=== PATIENT | female | born 1960 | race African-American/Black ===

== ENCOUNTER 2016-06-09 10:23 | Emergency (ER) | payer BC ==
[2016-06-09 10:29] VITALS: BP 163/88; PULSE 73; TEMP 97.4; BMI 28.3
--- NOTE | 2016-06-09 11:45 | PDOC ---
History of Present Illness - General Chief Complaint: Pain Stated Complaint: SWOLLEN LT INDEX Time Seen by Provider: 06/09/16 11:29 History Source: Patient Exam Limitations: No Limitations - History of Present Illness Initial Comments: 06/09/16 11:35 55 yr female with right index finger paronychia for one week. Pt denies trauma states she visits the nail salon often. Pt denies fever or chills. Pt has history of DM. Severity: reports: mild Upper Extremity Pain Location: right: 2nd finger Past History - Past Medical History Allergies/Adverse Reactions: Allergies Allergy/AdvReac Type Severity Reaction Status Date / Time No Known Allergies Allergy Verified 06/09/16 10:29 Home Medications: Ambulatory Orders Glimepiride [Amaryl] 4 mg PO BID 06/09/16 Losartan Potassium 50 mg PO DAILY 06/09/16 Sulfamethoxazole/Trimethoprim [Bactrim Ds Tablet] 1 each PO BID #10 tablet 06/09 Diabetes: Yes - Surgical History Abdominal Surgery: (TUBAL LIGATION) - Family Disease History Comment:: 06/09/16 11:37 denies - Psycho/Social/Smoking Cessation Hx Suicidal Ideation: No Smoking Status: No Smoking History: Never smoked Number of Cigarettes Smoked Daily: 0 Hx Alcohol Use: No Drug/Substance Use Hx: No Review of Systems - Review of Systems Able to Perform ROS?: Yes Is the patient limited Bhutanese proficient: No Constitutional: No: Symptoms Reported HEENTM: No: Symptoms Reported Respiratory: No: Symptoms reported Cardiac (ROS): No: Symptoms Reported ABD/GI: No: Symptoms Reported Musculoskeletal: No: Symptoms Reported Integumentary: Yes: Symptoms Reported *Physical Exam - Vital Signs Last Vital Signs Temp Pulse Resp BP Pulse Ox 97.4 F L 73 18 163/88 98 06/09/16 10:26 06/09/16 10:26 06/09/16 10:26 06/09/16 10:26 06/09/16 10:26 - Physical Exam General Appearance: Yes: Nourished, Appropriately Dressed HEENT: positive: EOMI, KRYSTINA, Normal ENT Inspection, TMs Normal, Pharynx Normal Neck: positive: Supple Respiratory/Chest: positive: Lungs Clear, Normal Breath Sounds Cardiovascular: positive: Regular Rhythm, Regular Rate Gastrointestinal/Abdominal: positive: Normal Bowel Sounds, Soft Musculoskeletal: positive: Normal Inspection Extremity: positive: Normal Capillary Refill, Normal Range of Motion, Swelling ( paronychia right index finger ) Integumentary: positive: Normal Color, Dry, Warm Neurologic: positive: Fully Oriented, Alert, Normal Mood/Affect, Normal Response , Motor Strength 5/5 Procedures - Incision and Drainage I&D Site: Right: Paronychia (index finger) Betadine cleansed: Yes Blade Size: 10 Attempts: 1 Dressing: Yes (soaked in warm soapy water after draining , bacitracin and bandaid ) Medical Decision Making - Medical Decision Making 06/09/16 11:40 cc: right index finger with paronychia no streaking redness up the finger nv intact will drain the paronychia and redress pt tolerated well 06/09/16 11:45 06/09/16 11:46 *DC/Admit/Observation/Transfer Diagnosis at time of Disposition: Paronychia of finger Qualifiers: Laterality: right Qualified Code(s): L03.011 - Cellulitis of right finger - Discharge Dispostion Disposition: HOME Condition at time of disposition: Good - Prescriptions Prescriptions: Sulfamethoxazole/Trimethoprim [Bactrim Ds Tablet] 1 each PO BID #10 tablet - Referrals Referrals: Wendy Eric MD [Primary Care Provider] - Edmund Chong MD [Staff Physician] - - Patient Instructions Additional Instructions: soak the finger in warm soapy water 3 times a day apply bacitracin and bandaid take the antibiotics as prescribed follow with the plastic surgeon for follow up if symptoms persist or worsen no nail salon until symptoms have improved
== END 2016-06-09 12:27 | disposition home or self-care (01) ==
LOC: JER 10:23 → JERFT 10:23
PROC: 0H9QXZZ Drainage of Finger Nail, External Approach (ICD-10-PCS; principal; 2016-06-09)
DX: L03.011 Cellulitis of right finger (principal)
CPT/HCPCS: 99281-25

== ENCOUNTER 2016-09-21 12:16 | Emergency (ER) | payer BC ==
[2016-09-21 12:20] VITALS: BP 130/83; PULSE 81; TEMP 98; BMI 26.5
[2016-09-21 12:39] LABS: URINE APPEARANCE CLEAR; URINE BILIRUBIN NEGATIVE (NEGATIVE); URINE BLOOD NEGATIVE (NEGATIVE); URINE COLOR LTYELLOW; URINE GLUCOSE (UA) 2+ (NEGATIVE); URINE KETONE NEGATIVE (NEGATIVE); URINE NITRITE NEGATIVE (NEGATIVE); URINE PROTEIN NEGATIVE (NEGATIVE); URINE UROBILINOGEN NEGATIVE E.U./dl (0.2-1.0)
[2016-09-21 12:40] LABS: URINE LEUK ESTERASE 1+ (NEGATIVE)
[2016-09-21] MEDS ORDERED: PHENAZOPYRIDINE HCL 100 MG TABLET (FP) PO ONE (12:52)
--- NOTE | 2016-09-21 12:56 | PDOC ---
History of Present Illness - General Chief Complaint: Urinary Problem Stated Complaint: LOWER PELVIC PAIN Time Seen by Provider: 09/21/16 12:40 - History of Present Illness Initial Comments: 09/21/16 12:53 CHIEF COMPLAINT: urinary pain HISTORY OF PRESENT ILLNESS: 55 yo F presents to [facility] with pain with urination. Patient states she feels burning or "knives" when she urinates. She denies any vaginal pain or back pain. She reports that she has not been sexually active for the past 10 years. Patient reports feeling "like chafing" to her vagina when urinating. PAST MEDICAL HISTORY: Denies past medical history FAMILY HISTORY: Denies SOCIAL HISTORY: Denies tobacco, alcohol, illicit drug use. SURGICAL HISTORY: hysterectomy ALLERGIES: No known drug allergies REVIEW OF SYSTEMS General/Constitutional: Denies fever or chills. Denies weakness, weight change. HEENT: Denies change in vision. Denies ear pain or discharge. Denies sore throat. Cardiovascular: Denies chest pain or shortness of breath. Respiratory: Denies cough, wheezing, or hemoptysis. Gastrointestinal: Denies nausea, vomiting, diarrhea or constipation. Denies rectal bleeding. Genitourinary: Dysuria and urinary frequency. Musculoskeletal: Denies joint or muscle swelling or pain. Denies neck or back pain. Skin and breasts: Denies rash or easy bruising. PHYSICAL EXAM General Appearance: Well-appearing, appropriately dressed. No apparent distress. HEENT: EOMI, PERRLA. Respiratory/Chest: Lungs CTAB. Cardiovascular: RRR. S1, S2. Gastrointestinal/Abdominal: Normal bowel sounds. Abdomen soft, non-distended. No tenderness or rebound tenderness. No organomegaly, pulsatile mass, guarding , hernia, hepatomegaly, splenomegaly. Musculoskeletal/Extremities: Normal inspection. FROM of all extremities, normal capillary refill. Pelvis Stable. No CVA tenderness. No tenderness to extremities, pedal edema, swelling, erythema or deformity. Pelvic: External genitalia normal without lesions, minimal cottage cheese like discharge to outer labia. Vaginal vault is clear without blood or discharge. Cervix is long and closed. No cervical motion tenderness. Uterus is nontender and normal in size. Adnexa are nontender and without masses. Integumentary: Appropriate color, dry, warm. 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 Fully oriented, alert. Appropriate mood/affect. Motor strength 5/5. No appreciable EOM palsy, facial droop or sensory deficit. 09/21/16 15:01 Past History - Past Medical History Allergies/Adverse Reactions: Allergies Allergy/AdvReac Type Severity Reaction Status Date / Time No Known Allergies Allergy Verified 09/21/16 12:18 Home Medications: Ambulatory Orders Glimepiride [Amaryl] 4 mg PO BID 06/09/16 Losartan Potassium 50 mg PO DAILY 06/09/16 Sulfamethoxazole/Trimethoprim [Bactrim Ds Tablet] 1 each PO BID #10 tablet 06/09 Cephalexin [Keflex] 500 mg PO BID #20 capsule 09/21/16 Diabetes: Yes (NIDDM) - Surgical History Abdominal Surgery: (TUBAL LIGATION) - Psycho/Social/Smoking Cessation Hx Anxiety: No Suicidal Ideation: No Smoking Status: No Smoking History: Never smoked Have you smoked in the past 12 months: No Number of Cigarettes Smoked Daily: 0 Information on smoking cessation initiated: No Hx Alcohol Use: No Drug/Substance Use Hx: No Substance Use Type: None *Physical Exam - Vital Signs Last Vital Signs Temp Pulse Resp BP Pulse Ox 98.0 F 81 16 130/83 100 09/21/16 12:18 09/21/16 12:18 09/21/16 12:18 09/21/16 12:18 09/21/16 12:18 ED Treatment Course - ADDITIONAL ORDERS Additional order review: Laboratory Results 09/21/16 12:20 Urine Color Ltyellow Urine Appearance Clear Urine pH 9.0 H D Urine Protein Negative Urine Glucose (UA) 2+ H Urine Ketones Negative Urine Blood Negative Urine Nitrite Negative Urine Bilirubin Negative Urine Urobilinogen Negative Ur Leukocyte Esterase 1+ H Medical Decision Making - Medical Decision Making 09/21/16 15:02 55 yo F presents to [facility] with pain with urination. -UA, UCx UA: 1+ leuks, WBC 1 - unlikely UTI but will treat symptomatically. Patient likely with yeast infection due to irritation and discharge visualized to external genitalia. -150 mg fluconazole Keflex sent to pharm. Advised patient to take medication as prescribed. Advised patient of signs and symptoms for return to ED. Patient verbalized understanding and agrees to plan. *DC/Admit/Observation/Transfer Diagnosis at time of Disposition: Vaginal candidiasis, Urinary tract infection symptoms - Discharge Dispostion Admit: No - Prescriptions Prescriptions: Cephalexin [Keflex] 500 mg PO BID #20 capsule - Referrals Referrals: Martin Lozano MD [Staff Physician] - - Patient Instructions Printed Discharge Instructions: DI for Vaginal Yeast Infection, DI for Urinary Tract Infection (UTI) Additional Instructions: Please take medication as prescribed. If your symptoms persist past 4-5 days, please follow up with the urologist (referral provided). If you experience any back pain, fever, nausea, vomiting, diarrhea, or any new or worsening symptoms, please return to the ER.
[2016-09-21 13:00] LABS: URINE RBC <1 /hpf (0-3); URINE WBC 1 /hpf (3-5)
[2016-09-21] MEDS ORDERED: FLUCONAZOLE 150 MG TABLET PO ONE (13:26)
[2016-09-21] MEDS ORDERED: FLUCONAZOLE 100 MG TABLET (UD) ONE (13:30)
== END 2016-09-21 13:33 | disposition home or self-care (01) ==
LOC: JERFT 12:16
DX: B37.49 Other urogenital candidiasis (principal)
CPT/HCPCS: 36415; 81003; 81015; 87086; 87491; 87591; 99281-25

== ENCOUNTER 2022-07-15 04:14 | Day surgery (SDC) | payer BC ==
[2022-07-14 09:44] VITALS: BMI 23.3
[2022-07-15 10:05] VITALS: BP 108/67; PULSE 56; RESP 15; TEMP 98
== END 2022-07-15 10:15 | disposition home or self-care (01) ==
LOC: JASU-ENDO 04:14
PROVIDERS: ATTEND Internal Medicine Gastroenterology
PROC: 0DBL8ZX Excision of Transverse Colon, Via Natural or Artificial Opening Endoscopic, Diagnostic (ICD-10-PCS; principal; 2022-07-15 09:30)
DX: Z12.11 Encounter for screening for malignant neoplasm of colon (principal); D12.3 Benign neoplasm of transverse colon
CPT/HCPCS: 88305-TC